=== PATIENT | female | born 1990 | race Caucasian/White ===

== ENCOUNTER 2017-09-28 11:42 | Observation (INO) | payer MEDICAID ==
[2017-09-28 12:41] VITALS: BP 110/69; PULSE 93
--- NOTE | 2017-09-28 15:32 | XRAY ---
Indication: well-being. Ultrasound biophysical profile study was performed. Comparison: None There is a single viable intrauterine with heart rate 137 BPM. Four-quadrant AIDEN is 10.9 cm. Largest amniotic pocket is 3 cm. 2 points given for breathing, movements, tone, and qualitative amniotic fluid volume. Impression: Total biophysical profile score is 8 out of 8.
== END 2017-09-28 15:10 | disposition home or self-care (01) ==
LOC: OB 11:42
PROVIDERS: ADMIT Family Medicine; ATTEND Family Medicine
DX: Z34.03 Encounter for supervision of normal first pregnancy, third trimester (principal)
CPT/HCPCS: 76819; 87081; G0378

== ENCOUNTER 2017-10-06 05:59 | Observation (INO) | payer MEDICAID ==
[2017-10-06] MEDS ORDERED: Lactated Ringers 1,000 ML IV ONE (06:54)
[2017-10-06] MEDS ORDERED: Zofran 4 MG/2 ML VIAL IV STA (06:55)
[2017-10-06] MEDS ORDERED: Lactated Ringers 1,000 ML IV SCH (08:30)
--- NOTE | 2017-10-06 08:33 | PCM.HP ---
History of Present Illness - Chief Complaint Chief Complaint: vomiting diarrhea History of Present Illness: is a 27 year old female pt of mine from [facility] at 36+ wks who came in complaining of N/V/D since last night. She vomited probably 20 times overnight. No blood in the emesis or diarrhea. 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 Only vomited x 1 since admission. She has been having constant back pain recently. C/o some abd pain, thought it was the baby kicking; on the monitor she is kady every 2-3 minutes. FHT wiht good variability , no accelerations as yet. - Review of Systems Constitutional: No Fever Abdominal/Gastrointestinal: Abdominal Pain, Nausea, Vomiting, Diarrhea Genitourinary Symptoms: , No Hematuria Musculoskeletal: Back Pain Medications & Allergies Home Medications: Home Medication List Ferrous Sulfate 325 mg [Feosol 325 mg] 325 mg PO UD 09/28/17 [History Confirmed 09/28/17] Vits W-Ca,Fe,FA(<1Mg) [] 1 each PO DAILY 09/28/17 [History Confirmed 09/28/17] Allergies/Adverse Reactions: Allergies Allergy/AdvReac Type Severity Reaction Status Date / Time No Known Drug Allergies Allergy Unverified 09/28/17 12:37 - Female History Expected Date of Delivery: 10/30/17 - Social History Smoking Status: Never smoker - Physical Exam Vital Signs: Vital Signs - 24 hr Temp Pulse Resp BP 10/06/17 06:36 98.1 F 109 H 20 138/88 General Appearance: no apparent distress, alert Neurologic Exam: oriented x 3, cooperative Eye Exam: eyes nml inspection Neck Exam: normal inspection Respiratory Exam: normal breath sounds, lungs clear, No crackles/rales, No rhonchi, No wheezing Cardiovascular Exam: regular rate/rhythm, normal heart sounds, No murmur Gastrointestinal/Abdomen Exam: soft, other (gravid; hypoactive bowel sounds), No tenderness Extremity Exam: normal inspection, No pedal edema, No swelling Skin Exam: normal color, warm, dry Assessment/Plan (1) and not yet delivered in third trimester Current Visit: Yes Status: Acute Assessment & Plan: At 36w 4d with contractions, likely due to dehydration. Will rehydrate her, leave on the monitor for now. The OB team has a new mother/baby so care to be given by Med/Surg nursing with oversight of strip by OB nurses remotely. Code(s): Z34.93 - ENCNTR FOR SUPRVSN OF NORMAL PREG, UNSP, THIRD TRIMESTER (2) Vomiting and diarrhea Current Visit: Yes Status: Acute Assessment & Plan: Likely gastroenteritis, has been exposed. Will check for influenza. Code(s): R11.10 - VOMITING, UNSPECIFIED; R19.7 - DIARRHEA, UNSPECIFIED (3) Gastroenteritis Current Visit: Yes Status: Acute Assessment & Plan: OK to try CLD, likely just need to wait until the virus runs it's course. Will check blood work Code(s): K52.9 - NONINFECTIVE GASTROENTERITIS AND COLITIS, UNSPECIFIED
[2017-10-06 09:32] LABS: Mean Cell Volume 84.1 fl (78-100); Mean Corpuscular Hemoglobin 27.5 pg (26-32); Platelet Count 196 K/mm3 (150-450); Red Blood Count 4.59 M/mm3 (4.1-5.4); Red Cell Distribution Width 15.4 % (11.5-14.0); White Blood Count 10.3 K/mm3 (4.0-10.5)
[2017-10-06] MEDS ORDERED: Zofran 4 MG/2 ML VIAL ONE (09:45)
[2017-10-06 10:16] LABS: ALBUMIN 2.5 g/dL (3.4-5.0); ALKALINE PHOSPHATASE 137 U/L (46-116); ANION GAP 19.4 MEQ/L (5-15); BLOOD UREA NITROGEN 10 mg/dL (9-20); CHLORIDE 106 mEq/L (98-107); Carbon Dioxide 21.3 mEq/L (21-32); Glucose 91 MG/DL (70-110); Potassium 4.1 mEq/L (3.5-5.1); SGOT/AST 25 U/L (15-37); SGPT/ALT 25 U/L (12-78); SODIUM 143 mEq/L (136-145); Total Protein 6.9 gm/dL (6.4-8.2)
[2017-10-06 14:18] LABS: BAND 6 % (0.0-2.0); Total Cells Counted 100
[2017-10-06 14:19] LABS: Platelet Estimate NORMAL (NORMAL); Polychromasia 1+
[2017-10-06 15:50] VITALS: BP 123/81; PULSE 94; O2SAT 94
== END 2017-10-06 18:00 | disposition home or self-care (01) ==
LOC: EDSTATUS 06:13 → MED SURG 06:13 → UNDOADMOB 06:13
PROVIDERS: ADMIT Family Medicine; ATTEND Family Medicine
DX: Z34.93 Encounter for supervision of normal pregnancy, unspecified, third trimester (principal); K52.9 Noninfective gastroenteritis and colitis, unspecified
CPT/HCPCS: 36415; 80053; 85025; 87631; G0378; J2405

== ENCOUNTER 2017-10-19 12:33 | Observation (INO) | payer MEDICAID, OTHER ==
[2017-10-19 13:26] VITALS: PULSE 89
[2017-10-19 13:44] VITALS: BP 132/86
== END 2017-10-19 14:25 | disposition home or self-care (01) ==
LOC: OB 12:33
PROVIDERS: ADMIT Family Medicine; ATTEND Family Medicine
DX: Z34.03 Encounter for supervision of normal first pregnancy, third trimester (principal)
CPT/HCPCS: 59025; G0378

== ENCOUNTER 2017-11-02 12:16 | Observation (INO) | payer MEDICAID ==
--- NOTE | 2017-11-02 13:32 | XRAY ---
Indication: weight. Limited OB ultrasound performed. Comparison: May 31, 2017. There is a single viable intrauterine currently in breech presentation. heart rate 159 bpm. BPD measures 9.47 cm corresponding to 38 weeks 4 days. HC measures 33.92 cm corresponding to 39 weeks 0 days. AC measures 36.53 cm corresponding to 40 weeks 3 days. FL measures 7.83 cm corresponding to 40 weeks 0 days. Estimated weight 8 lbs. 11 oz., +/-1 lb. 5 oz. Approximately 70 percentile. Impression: Again single viable intrauterine with mean gestational age 39 weeks 4 days. Normal progression of .
[2017-11-02 13:45] VITALS: BP 139/79; PULSE 90
== END 2017-11-02 13:45 | disposition home or self-care (01) ==
LOC: OB 12:16
PROVIDERS: ADMIT Family Medicine; ATTEND Family Medicine
DX: Z34.03 Encounter for supervision of normal first pregnancy, third trimester (principal)
CPT/HCPCS: 59025; 76815; G0378

== ENCOUNTER 2017-11-03 10:12 | Inpatient (IN) | payer MEDICAID ==
[~2017-11-03 10:12] MED LIST: Decadron 4 MG INJ IV ONE; Ephedrine Sulfate 50 MG/ML IV ONE; LIDOCAINE HCL 2% 100 MG/5 ML IJ ONE; Naropin 0.5% 30 ML VIAL IJ ONE; Pitocin 10 UNITS/ML IV ONE; Zofran 4 MG/2 ML VIAL IV ONE
[2017-11-03] MEDS ORDERED: BICITRA 30 ML CUP PO SCH (13:00)
[2017-11-03] MEDS ORDERED: Reglan 10 MG/2 ML IV SCH (13:00)
[2017-11-03] MEDS ORDERED: Pepcid 20 MG VIAL IV SCH (13:00)
[2017-11-03] MEDS: Lactated Ringers 1,000 ML IV ONE ×2 (13:15→14:16)
[2017-11-03 13:48] LABS: Mean Cell Volume 82.9 fl (78-100); Mean Corpuscular Hemoglobin 27.6 pg (26-32); Platelet Count 206 K/mm3 (150-450); Red Blood Count 4.45 M/mm3 (4.1-5.4); Red Cell Distribution Width 15.6 % (11.5-14.0); White Blood Count 11.1 K/mm3 (4.0-10.5)
[2017-11-03 14:09] LABS: INR 0.98 (0.8-3.0); PROTIME 10.9 SECONDS (9.95-12.35)
[2017-11-03 14:11] LABS: PTT 27.6 SECONDS (25.3-37.0)
[2017-11-03 14:24] LABS: Bilirubin NEGATIVE (NEGATIVE); Blood 250 Ery/ul (0-5); COMPLETE URINE MICROSCOPIC? YES; Collection Type CLEAN CATCH; Glucose NEGATIVE (NEGATIVE); Leukocyte Esterase 2+ (NEGATIVE)
[2017-11-03 14:37] LABS: Bacteria MANY /HPF (NEGATIVE); Epithelial Cells PACKED /HPF (FEW); Mucus MODERATE /HPF (NEGATIVE); WBC 25-50 /HPF (0-5)
[2017-11-03] MEDS ORDERED: Astramorph-Pf 5 MG/10 ML IV ONE (14:39)
[2017-11-03] MEDS ORDERED: KEFZOL 1 GM ONE (15:13)
[2017-11-03] MEDS ORDERED: Lactated Ringers 2,000 ML IV ONE (15:13)
[2017-11-03] MEDS ORDERED: TUCKS TP PRN (16:13)
[2017-11-03] MEDS ORDERED: Mylicon 80MG PO PRN (16:13)
[2017-11-03] MEDS ORDERED: Ambien 10 MG PO PRN (16:13)
[2017-11-03] MEDS ORDERED: LANSINOH 40 GM TOP PRN (16:13)
[2017-11-03] MEDS ORDERED: CORTISONE 1% CREAM TP PRN (16:13)
[2017-11-03] MEDS ORDERED: Anucort-HC SUPPOSITORY PR PRN (16:13)
[2017-11-03] MEDS ORDERED: TYLENOL EXTRA STRENGTH 500 MG PO PRN (16:13)
[2017-11-03] MEDS ORDERED: Dulcolax 10 MG SUPP PR PRN (16:13)
[2017-11-03] MEDS ORDERED: DEMEROL 50 MG ONE (16:35)
[2017-11-03] MEDS ORDERED: Dextrose 5%-Lr IV Solution 1000 ML 1,000 ML IV ONE (18:34)
[2017-11-03] MEDS ORDERED: Nubain 10 MG/ML IV PRN (18:39)
[2017-11-03] MEDS ORDERED: DEMEROL 50 MG IV PRN (18:39)
[2017-11-03] MEDS ORDERED: Narcan 0.4 MG/ML IV PRN (18:39)
[2017-11-03] MEDS ORDERED: Sodium Chloride 0.9% 10 ML FLUSH Syringe IJ PRN (18:39)
[2017-11-03] MEDS ORDERED: CLARITIN 10 MG PO PRN (18:39)
[2017-11-03] MEDS ORDERED: Zofran 4 MG/2 ML VIAL IV PRN (18:39)
[2017-11-03] MEDS ORDERED: HOLD NARCOTIC ANALGESICS AND SEDATIVES X24 HR MC PRN (18:39)
[2017-11-03] MEDS ORDERED: MORPHINE SULFATE 2 MG INJ IV PRN (18:39)
[2017-11-03] MEDS: Dextrose 5%-Lr IV Solution 1000 ML 1,000 ML IV SCH (18:50)
[2017-11-03] MEDS: BENADRYL 50 MG/ML IV PRN ×2 (19:04→22:40)
[2017-11-03] MEDS: Colace 100 MG PO SCH (22:40)
[2017-11-04] MEDS: Dextrose 5%-Lr IV Solution 1000 ML 1,000 ML IV SCH (01:37)
[2017-11-04] MEDS: PERCOCET TABLET 5/325MG PO PRN ×4 (01:55→12:18)
[2017-11-04] MEDS: MOTRIN 400 MG PO PRN ×2 (04:15→20:13)
[2017-11-04 05:58] LABS: Mean Cell Volume 84.2 fl (78-100); Mean Platelet Volume 11.6 fl (6-9.5); Platelet Count 192 K/mm3 (150-450); Red Blood Count 3.67 M/mm3 (4.1-5.4); Red Cell Distribution Width 15.3 % (11.5-14.0); White Blood Count 14.9 K/mm3 (4.0-10.5)
[2017-11-04 06:05] LABS: Mean Corpuscular Hemoglobin 27.7 pg (26-32)
[2017-11-04 07:06] LABS: BAND 4 % (0.0-2.0); Platelet Estimate NORMAL (NORMAL); Total Cells Counted 100
--- NOTE | 2017-11-04 07:40 | OP ---
SURGERY DATE/TIME: 11/03/2017 1523 PREOPERATIVE DIAGNOSES: 1) Breech presentation. 2) Term intrauterine . POSTOPERATIVE DIAGNOSES: 1) Breech presentation. 2) Term intrauterine . PROCEDURE: Primary low transverse section. SURGEON: Jos Hollingsworth M.D. ANESTHESIA: Spinal by Mathieu Oseguera CRNA. ESTIMATED BLOOD LOSS: 400 cc. IV FLUIDS: 1500 cc of crystalloid. URINE OUTPUT: 50 cc clear straw-colored urine. SPECIMEN: None. DESCRIPTION OF PROCEDURE: After informed written consent was obtained the patient was taken to the operating room. She underwent spinal anesthesia. She was prepped and draped in the usual sterile fashion. After adequate level of anesthesia was assessed, a low transverse skin incision was made by knife and carried down to the subcutaneous fat to the level of the fascia. The fascia was nicked on both sides of the midline and extended in horizontal fashion using curved Moses scissors. The superior free edge of the fascia was then grasped with Blu clamps and the underlying rectus muscles were dissected free. The same was repeated inferiorly. Next, the peritoneal cavity was opened and extended in horizontal fashion. A bladder blade was then created and reflected over the lower uterine segment. Horizontal uterine incision was made by knife and carried down to the level of the amniotic membranes which were carefully artificially ruptured. There was clear fluid upon rupture of membranes. A viable female was delivered from the breech presentation with a nuchal cord x1 which was reduced after delivery. There was a strong cry immediately after delivery. The oropharynx and nares were bulb suctioned free by Dr. Pollock. The cord was clamped and cut. She then scrubbed to attend to the baby. Next, the placenta was removed from the uterine cavity and the uterus was exteriorized. The uterine cavity was wiped free of clot and any remaining membranes with lap sponge. The uterine incision was closed with #1 chromic suture in a running locked fashion with good closure and good hemostasis. Posterior cul-de-sac was wiped free of blood and clot and the uterus was returned to the peritoneal cavity. The lateral gutters were wiped free of blood and clot. The uterine incision was then closely inspected and again noted to be hemostatic with good closure. Next, the fascia was closed with 0 Vicryl in a running fashion with good closure and good hemostasis. The subcutaneous fat was irrigated with warm, sterile saline and any areas of bleeding were cauterized with electrocautery. Finally the skin layer was closed with 4-0 undyed Vicryl in a running subcuticular fashion. Steri-Strips and occlusive dressing were placed over the incision. The patient was sent to the recovery room in excellent condition.
[2017-11-04] MEDS: Colace 100 MG PO SCH ×2 (08:18→21:22)
[2017-11-04] MEDS: FERREX 150 PO SCH (08:18)
[2017-11-04] MEDS: THERAGRAN MULTIVITAMIN PO SCH (11:05)
[2017-11-04 14:29] VITALS: O2SAT 98
[2017-11-04] MEDS ORDERED: Decadron 4 MG INJ IM ONE (17:03)
[2017-11-04] MEDS: NORCO 5/325 MG PO PRN ×2 (17:13→21:22)
[2017-11-04] MEDS ORDERED: DEMEROL 75 MG IM PRN (18:45)
[2017-11-04] MEDS ORDERED: Phenergan 25 MG INJ IM PRN (18:45)
[2017-11-05] MEDS: NORCO 5/325 MG PO PRN ×3 (01:17→16:11)
[2017-11-05] MEDS: MOTRIN 400 MG PO PRN ×2 (02:19→08:51)
[2017-11-05] MEDS: Colace 100 MG PO SCH (08:52)
[2017-11-05] MEDS: THERAGRAN MULTIVITAMIN PO SCH (08:52)
[2017-11-05] MEDS: FERREX 150 PO SCH (08:52)
--- NOTE | 2017-11-05 09:37 | PCM.DS ---
Discharge Summary Date of Admission: 11/03/17 12:57 Admitting Physician: NEHA RUDD Consults: Consults on Case 11/03/17 13:00 Notify Anesthesia Provider ROUTINE Notify Physician OF ADMISSION 11/03/17 18:40 Notify Anesthesia Provider PRN Primary Care Provider: NEHA RUDD Allergies Allergies No Known Drug Allergies Allergy (Unverified 09/28/17 12:37) Hospital Summary - Hospital Course Hospital Course: Pt is 27 yo who was admitted for scheduled ; she was sent over for IOL but found to be breech. Delivered viable 8lb 4oz female without incident. Baby is bottlefeeding well, has done well but has a heart murmur that will be evaluated outpatient. Pt's bleeding has slowed, she is up out of bed without difficulty. She has complained of some back pain at the epidural site; [employer] came to re-evaluate and gave decadron 4mg IM x 1 which did help. Also much relief with ibuprofen and ice. - Vitals & Intake/Output Vital Signs: Vital Signs Temperature 98.0 F 11/05/17 02:00 Pulse Rate 82 11/05/17 02:00 Respiratory Rate 18 11/05/17 02:00 Blood Pressure 148/81 11/05/17 02:00 O2 Sat by Pulse Oximetry 98 11/04/17 14:00 Intake & Output: Intake & Output 11/02/17 11/03/17 11/04/17 11/05/17 11:59 11:59 11:59 11:59 Intake Total 1540 Output Total 1200 Balance 340 Weight 101.321 kg - Lab Result Diagrams: 11/04/17 05:15 Micro Results-Entire Visit: Microbiology 11/03/17 15:37 Urine Culture - Preliminary Urine, Catheterized NO GROWTH TO DATE Discharge Exam General Appearance: no apparent distress, alert Neurologic Exam: oriented x 3, cooperative Skin Exam: normal color, warm, dry, No rash Ears, Nose, Throat Exam: moist mucous membranes Respiratory Exam: normal breath sounds, lungs clear, No crackles/rales, No rhonchi, No wheezing Cardiovascular Exam: regular rate/rhythm, normal heart sounds, No murmur Gastrointestinal/Abdomen Exam: soft, other (fundus firm at umbilicus. Wound is clean/dry/intact.) Extremity Exam: No pedal edema Final Diagnosis/Problem List - Final Discharge Diagnosis/Problem (1) delivery delivered Current Visit: Yes Status: Acute Assessment & Plan: POD #2 today, doing great. Home after 48 hours. (2) Back pain Current Visit: Yes Status: Acute Assessment & Plan: much improved, continue ibuprofen prn and ice. - Discharge Disposition: Home, Self-Care Condition: Stable Prescriptions: New Breast Pump 1 each MC UD #1 each Ibuprofen 800 mg PO TID PRN #35 tablet PRN Reason: Pain Hydrocodone/Acetaminophen [[place] 5-325 Tablet] 1 each PO QID PRN #30 tablet MDD 4 PRN Reason: Pain Continue Vits W-Ca,Fe,FA(<1Mg) [] 1 each PO DAILY Follow up with: NEHA RUDD [Primary Care Provider] - 1 Week
[2017-11-05] MEDS ORDERED: NON-FORMULARY ITEM (Prenatal Vits W-Ca,Fe,Fa(<1mg) [Prenatal] 1 EACH) PO SCH (10:00)
[2017-11-05 18:14] VITALS: BP 133/78; PULSE 91
== END 2017-11-05 17:45 | disposition home or self-care (01) | DRG 766 ==
LOC: UNDOADMIN 10:12 → OB 10:12
PROVIDERS: ADMIT Family Medicine; ATTEND Family Medicine
PROC: 10D00Z1 Extraction of Products of Conception, Low, Open Approach (ICD-10-PCS; principal; 2017-11-03)
DX: O32.1XX0 Maternal care for breech presentation, not applicable or unspecified (principal); Z3A.40 40 weeks gestation of pregnancy; Z37.0 Single live birth; D17.1 Benign lipomatous neoplasm of skin and subcutaneous tissue of trunk
CPT/HCPCS: 01961; 36415; 59025; 64488; 76815; 76937; 76942; 80307; 81000; 85025; 85027; 85610; 85730; 86850; 86900; 86901; 87086; 94799; G0378; J0690; J1100; J1200; J2175; J2274; J2405; J2590; J2795; L0625; A9270-GY

== ENCOUNTER 2018-01-30 09:12 | Day surgery (SDC) | payer MEDICAID, OTHER ==
--- NOTE | 2018-01-30 07:49 | HP ---
DATE OF SURGERY: 01/30/2018 HISTORY OF PRESENT ILLNESS: The patient is a 27 year-old who has an enlarging, raised lesion on the back question lipoma or other etiology. Increasingly symptomatic, discomfort and desires excision. PAST MEDICAL HISTORY: No chronic illnesses. MEDICATIONS: Robitussin. ALLERGIES: NKDA. PAST SURGICAL HISTORY: section in the past. FAMILY HISTORY: Diabetes and hypertension. SOCIAL HISTORY: No smoking or alcohol abuse. REVIEW OF SYSTEMS: Twelve systems reviewed per admission assessment. No chest pain or palpitations other systems negative or noncontributory as above and per preadmission questionnaire. PHYSICAL EXAMINATION: GENERAL: No acute distress. HEENT: Sclerae nonicteric. NECK: No JVD. CHEST: Equal excursion, nonlabored breathing. CVS: Regular rate and rhythm. ABDOMEN: Soft, nontender. EXTREMITIES: No edema. NEURO: Alert, oriented, moving extremities symmetrically. No gross motor deficits noted. BACK: She has a raised back subcutaneous mass question lipoma versus other etiology. IMPRESSION: Enlarging back subcutaneous mass or lipoma. I feel the patient will benefit from excisional biopsy. Risks and benefits explained in detail but not limited to bleeding or infection, risk of hematoma or seroma formation, risk of wound dehiscence possibly requiring packing, healing by secondary intent, general risk of aches, pains, burning or numbness possible fci or chronic in nature. She also understands should this be a lipoma although likely will not recur but could get similar lipoma, nodule or masses adjacent to or elsewhere on her body. She understands and agrees to the planned procedure as well as general risk of anesthesia, deep venous thrombosis, pulmonary embolism, pneumonia but not limited to. We will proceed with excisional biopsy of enlarging back subcutaneous mass or lipoma as an outpatient.
[~2018-01-30 09:12] MED LIST changes: -Decadron 4 MG INJ IV ONE; -Ephedrine Sulfate 50 MG/ML IV ONE; -LIDOCAINE HCL 2% 100 MG/5 ML IJ ONE; +Lactated Ringers 1,000 ML IV ONE; +Lactated Ringers 1,000 ML IV SCH; -Naropin 0.5% 30 ML VIAL IJ ONE; -Pitocin 10 UNITS/ML IV ONE; +Sensorcaine 0.25% 10 ML ONE; -Zofran 4 MG/2 ML VIAL IV ONE
[2018-01-30] MEDS ORDERED: DIPRIVAN 200 MG/20 ML IV ONE (09:13)
[2018-01-30] MEDS ORDERED: Zemuron 100 MG/10 ML IJ ONE (09:13)
[2018-01-30] MEDS ORDERED: SUBLIMAZE 100 MCG/2 ML IV ONE (09:13)
[2018-01-30] MEDS ORDERED: Zofran 4 MG/2 ML VIAL IV ONE (09:13)
[2018-01-30] MEDS ORDERED: TORAdol 30 mg Injection IJ ONE (09:13)
[2018-01-30] MEDS ORDERED: Quelicin Fliptop 200 MG/10 ML IJ ONE (09:13)
[2018-01-30] MEDS ORDERED: DECADRON IJ ONE (09:13)
[2018-01-30] MEDS ORDERED: KEFZOL 1 GM ONE (11:20)
[2018-01-30] MEDS ORDERED: SUBLIMAZE 100 MCG/2 ML ONE (12:18)
[2018-01-30] MEDS ORDERED: APRESOLINE 20 MG/ML INJ ONE (12:28)
[2018-01-30] MEDS ORDERED: NORCO 5/325 MG PO PRN (12:56)
[2018-01-30] MEDS ORDERED: NORCO 5/325 MG ONE (12:59)
[2018-01-30 13:44] VITALS: O2SAT 95
[2018-01-30 13:51] VITALS: BP 127/86; PULSE 83
--- NOTE | 2018-01-30 15:06 | OP ---
SURGERY DATE/TIME: 01/30/2018 1111 PREOPERATIVE DIAGNOSIS: Enlarging subcutaneous back mass or lipoma. POSTOPERATIVE DIAGNOSIS: Enlarging subcutaneous back mass or lipoma. PROCEDURE: Excisional biopsy of 10 cm back lipoma with intermediate closure. SURGEON: Dr. Rikki Nunn. ANESTHESIA: General. ESTIMATED BLOOD LOSS: Minimal. INDICATIONS: Consent obtained. Site confirmed with the patient in the preoperative holding area. DESCRIPTION OF PROCEDURE AND FINDINGS: She is taken to the operating room. General anesthesia introduced. She is placed in prone position with appropriate padding per anesthesia and OR staff. Back is prepped and draped in usual sterile fashion. After official time out and no disagreement with planned procedure, it was very difficult to tell the orientation of this whether it was lying transverse or more vertical. It was elected to go ahead and make a transverse incision. There was a small, little area in the skin excised small ellipse of skin taken directly overlying the area. Dissection carried deep down to very large lobulated lipomatous density carefully. It had a large cavity inferiorly that was carefully dissected up off the underlying fascia and passed off. It measured about 10 cm in size and passed off for pathology. Pin point cautery. Good hemostasis was noted. Given the large potential space, interrupted 2-0 Vicryl used to close the anterior skin subcu fascia flaps down to the level of the fascia with interrupted 2-0 Vicryl and some 3-0 Vicryl reducing the space to avoid the need for any drain placement. The skin is closed with 3-0 Vicryl in subcuticular fashion. The flaps were mobilized back towards the midline of the wound. 3-0 Vicryl subcuticular skin placed given the location of the back with some interrupted vertical mattress, 3-0 Prolene used to reinforce the area. 0.25% Marcaine local injected along the wound area. The patient tolerated the procedure well. There were no immediate complications. Findings discussed with the family out in the waiting area.
== END 2018-01-30 14:00 | disposition home or self-care (01) ==
LOC: SDC 09:12
PROVIDERS: ATTEND Surgery
PROC: 0JB70ZZ Excision of Back Subcutaneous Tissue and Fascia, Open Approach (ICD-10-PCS; principal; 2018-01-30)
DX: D17.1 Benign lipomatous neoplasm of skin and subcutaneous tissue of trunk (principal)
CPT/HCPCS: 84703; 88304; J0330; J0360; J0690; J1100; J1885; J2405; J2704; J3010; L0625; A9270-GY